=== PATIENT | male | born 1955 | race Caucasian/White ===

== ENCOUNTER 2017-05-16 16:18 | Inpatient (IN) | payer SELFPAY ==
[~2017-05-16] VITALS: Ht 177.8 cm; Wt 92.1 kg
[2017-05-16 16:18] VITALS: BP 116/72; PULSE 95; RESP 18; TEMP 98; O2SAT 97
[~2017-05-16 16:18] MED LIST: CLIN1CAP5 PO; IBUP600T26 PO; LORTA5 PO
[2017-05-16] MEDS ORDERED: AMOX500C PO (17:01)
[2017-05-16] MEDS ORDERED: METF500T PO (17:01)
[2017-05-16] MEDS ORDERED: LISI-515 PO (17:01)
[2017-05-16] MEDS ORDERED: LOVA10TA PO (17:01)
[2017-05-16] MEDS ORDERED: TYLE325T PO (17:01)
[2017-05-16 17:02] VITALS: BP 118/67; PULSE 84; RESP 18; O2SAT 99
[2017-05-16] MEDS ORDERED: SODIUM CHLOR 0.9% 1000 ML INJ 1,000 ML IV SCH ×2 (17:08→18:11)
[2017-05-16 17:09] VITALS: O2SAT 97
--- NOTE | 2017-05-16 17:10 | PD ---
HPI Chief Complaint: Medical Clearance Time Seen by Provider: 17:01 Travel History International Travel<30 days: No Contact w/Intl Traveler<30days: No Traveled to known affect area: No History of Present Illness HPI 61-year-old male brought in by ambulance from work for evaluation of possible acute extraction. The patient works outside in a gardening center. He has been working since 7:30 AM. Around 4:00 PM the patient became very nauseous/ diaphoretic, had hand cramping and muscle cramping, and began to vomit. He did not lose consciousness. EMS started an IV and administered a liter of normal saline IV. Upon arrival to the emergency department the patient is feeling much improved. He denies having chest pain or dyspnea. No abdominal pain. Of note is 92F outside currently with a heat index of 100F. PFSH Past Medical History Cardiovascular Problems: Yes (HTN) Diabetes: Yes Patient Takes Glucophage: Yes Tetanus Vaccination: > 5 Years Influenza Vaccination: No Past Surgical History Other Surgery: Yes (DEVIATED SEPTUM REPAIR) Social History Alcohol Use: Yes (DAILY ) Tobacco Use: Yes (CHEWING TOBACCO) Substance Use: No Allergies-Medications (Allergen,Severity, Reaction): Uncoded Allergies: POLLEN (Allergy, Severe, 04/08/15) SOB, RUNNY NOSE Reported Meds & Prescriptions Reported Meds & Active Scripts Active Reported Tylenol (Acetaminophen) 325 Mg Tab 325 Mg PO Q6H PRN Amoxicillin 500 Mg Cap 500 Mg PO BID Metformin (Metformin HCl) 500 Mg Tab 500 Mg PO BIDPC With meals Lisinopril 20 Mg Tab 20 Mg PO DAILY Lovastatin 10 Mg Tab 10 Mg PO DAILY Review of Systems Except as stated in HPI: all other systems reviewed are Neg Physical Exam Narrative GENERAL: Well-developed, well-nourished, comfortable, no acute distress. SKIN: Focused skin assessment warm/dry. HEAD: Atraumatic. Normocephalic. EYES: Pupils equal and round. No scleral icterus. No injection or drainage. ENT: Mucous membranes pink and moist. NECK: Trachea midline. No JVD. CARDIOVASCULAR: Regular rate and rhythm. RESPIRATORY: No accessory muscle use. Clear to auscultation. Breath sounds equal bilaterally. GASTROINTESTINAL: Abdomen soft, non-tender, nondistended. MUSCULOSKELETAL: No obvious deformities. No clubbing. No cyanosis. No edema. NEUROLOGICAL: Awake and alert. No obvious cranial nerve deficits. Motor grossly within normal limits. Normal speech. PSYCHIATRIC: Appropriate mood and affect; insight and judgment normal. Data Data Last Documented VS Vital Signs Date Time Temp Pulse Resp B/P Pulse Ox O2 Delivery O2 Flow Rate FiO2 05/16/17 18:01 85 18 118/70 100 Room Air 05/16/17 17:09 2 05/16/17 16:18 98.0 Orders Complete Blood Count With Diff (05/16/17 17:08) Comprehensive Metabolic Panel (05/16/17 17:08) Iv Access Insert/Monitor (05/16/17 17:08) Ecg Monitoring (05/16/17 17:08) Oximetry (05/16/17 17:08) Sodium Chlor 0.9% 1000 Ml Inj (Ns 1000 M (05/16/17 17:08) Sodium Chloride 0.9% Flush (Ns Flush) (05/16/17 17:15) Electrocardiogram (05/16/17 17:08) Sodium Chlor 0.9% 1000 Ml Inj (Ns 1000 M (05/16/17 18:11) Creatine Kinase (Cpk) (05/16/17 18:12) Urinalysis - C+S If Indicated (05/16/17 18:12) Labs Laboratory Tests Test 05/16/17 05/16/17 17:13 18:27 White Blood Count 9.8 TH/MM3 Red Blood Count 4.29 MIL/MM3 Hemoglobin 13.7 GM/DL Hematocrit 39.9 % Mean Corpuscular Volume 92.9 FL Mean Corpuscular Hemoglobin 31.9 PG Mean Corpuscular Hemoglobin 34.4 % Concent Red Cell Distribution Width 13.3 % Platelet Count 135 TH/MM3 Mean Platelet Volume 8.5 FL Neutrophils (%) (Auto) 77.8 % Lymphocytes (%) (Auto) 10.4 % Monocytes (%) (Auto) 9.9 % Eosinophils (%) (Auto) 1.5 % Basophils (%) (Auto) 0.4 % Neutrophils # (Auto) 7.6 TH/MM3 Lymphocytes # (Auto) 1.0 TH/MM3 Monocytes # (Auto) 1.0 TH/MM3 Eosinophils # (Auto) 0.2 TH/MM3 Basophils # (Auto) 0.0 TH/MM3 CBC Comment DIFF FINAL Differential Comment Sodium Level 134 MEQ/L Potassium Level 4.6 MEQ/L Chloride Level 101 MEQ/L Carbon Dioxide Level 21.5 MEQ/L Anion Gap 12 MEQ/L Blood Urea Nitrogen 62 MG/DL Creatinine 3.71 MG/DL Estimat Glomerular Filtration 17 ML/MIN Rate Random Glucose 136 MG/DL Calcium Level 8.5 MG/DL Total Bilirubin 1.1 MG/DL Aspartate Amino Transf 41 U/L (AST/SGOT) Alanine Aminotransferase 55 U/L (ALT/SGPT) Alkaline Phosphatase 54 U/L Total Protein 7.5 GM/DL Albumin 4.0 GM/DL Urine Color YELLOW Urine Turbidity CLEAR Urine pH 5.0 Urine Specific [place] 1.013 Urine Protein TRACE mg/dL Urine Glucose (UA) NEG mg/dL Urine Ketones NEG mg/dL Urine Occult Blood NEG Urine Nitrite NEG Urine Bilirubin NEG Urine Urobilinogen LESS THAN 2.0 MG/DL Urine Leukocyte Esterase NEG Urine RBC LESS THAN 1 /hpf Urine WBC 1 /hpf Urine Hyaline Casts 44 /lpf Urine Mucus FEW /lpf Microscopic Urinalysis Comment CULT NOT INDICATED MDM Medical Decision Making Medical Screen Exam Complete: Yes Emergency Medical Condition: Yes Medical Record Reviewed: Yes Interpretation(s) EKG: Sinus, rate 90, normal axis, normal intervals, no acute ischemic abnormality. Differential Diagnosis Heat exhaustion, metabolic abnormality Narrative Course Vital signs reviewed. CBC shows WBC 9.8, hemoglobin 13.7, hematocrit 39.9, platelets 135. CMP is remarkable for BUN 62, creatinine 3.71, GFR 17. This is stress clear worse than the labs that we have on record from 2015. Patient was made aware of all findings. He was given a liter of normal saline IV by EMS as well as another liter here in the emergency department. He reports feeling improved. He reports that he has been doing a lot of heavy lifting at work. CK will be added to his labs as well as a UA. He was started on normal saline at 1 25 cc per hour and will be admitted for further treatment and evaluation of acute renal failure/insufficiency and heat exhaustion. Case discussed with medical office administrator Dr. Mary. The patient will be admitted to their service for further treatment and evaluation. Patient made aware of all findings and plan for admission. Diagnosis Primary Impression: Acute renal insufficiency Additional Impression: Heat exhaustion Qualified Code: T67.5XXA - Heat exhaustion, initial encounter Admitting Information Admitting Physician Requests: Admit Malick Mayer MD May 16, 2017 17:10
[2017-05-16] MEDS ORDERED: SODIUM CHLORIDE 0.9% FLUSH 10 ML FLUSH IV FLUSH PRN ×2 (17:15→19:30)
[2017-05-16 17:40] LABS: AUTOMATED NEUTROPHIL # 7.6 TH/MM3 (1.8-7.7); BASOPHIL % 0.4 % (0.0-2.0); EOSINOPHIL # 0.2 TH/MM3 (0-0.4); EOSINOPHIL % 1.5 % (0.0-4.0); HEMATOCRIT 39.9 % (39.0-51.0); HEMO FLAGS DIFF FINAL; LYMPH % 10.4 % (9.0-44.0); MEAN CELL VOLUME 92.9 FL (80.0-100.0); MEAN CORPUSCULAR HEMOGLOBIN 31.9 PG (27.0-34.0); MEAN CORPUSCULAR HGB CONC 34.4 % (32.0-36.0); MONO % 9.9 % (0.0-8.0); NEUT % 77.8 % (16.0-70.0); PLATELET COUNT 135 TH/MM3 (150-450); RED BLOOD COUNT 4.29 MIL/MM3 (4.50-5.90); RED CELL DISTRIBUTION WIDTH 13.3 % (11.6-17.2); WHITE BLOOD COUNT 9.8 TH/MM3 (4.0-11.0)
[2017-05-16 18:01] VITALS: BP 118/70; PULSE 85; RESP 18; O2SAT 100
[2017-05-16 18:02] LABS: ANION GAP 12 MEQ/L (5-15); AST (GOT) 41 U/L (15-37); BICARBONATE 21.5 MEQ/L (21.0-32.0); BLOOD UREA NITROGEN 62 MG/DL (7-18); CHLORIDE 101 MEQ/L (98-107); GLOMERULAR FILTRATION RATE 17 ML/MIN (>89); POTASSIUM 4.6 MEQ/L (3.5-5.1); SODIUM (NA) 134 MEQ/L (136-145)
[2017-05-16 18:03] LABS: ALT (GPT) 55 U/L (12-78)
[2017-05-16 18:05] LABS: ALKALINE PHOSPHATASE 54 U/L (45-117); TOTAL BILIRUBIN ADULT 1.1 MG/DL (0.2-1.0)
[2017-05-16 18:37] LABS: BLOOD, URINE NEG (NEG); COMMENT (UR) CULT NOT INDICATED; CULTURE IF INDICATED CULT NOT INDICATED; GLUCOSE,URINE NEG (NEG); HYALINE CAST, URINE 44 /lpf (RARE); KETONE, URINE NEG (NEG); MUCUS URINE FEW /lpf (OCC); NITRITE,URINE NEG (NEG); URINE COLOR YELLOW (YELLW/STRAW)
[2017-05-16] MEDS ORDERED: RESP: ALBUTEROL 2.5 MG/3 ML NEB (PRN) INH (19:30)
[2017-05-16] MEDS ORDERED: NALOXONE HCL 0.4 MG/ML AMP IV PRN (19:30)
[2017-05-16] MEDS ORDERED: SENNOSIDES 8.6 MG TAB PO PRN (19:30)
[2017-05-16] MEDS ORDERED: ACETAMINOPHEN 325 MG TAB PO PRN (19:30)
[2017-05-16] MEDS ORDERED: cloNIDine HCL 0.1 MG TAB PO PRN (19:30)
[2017-05-16] MEDS ORDERED: BISACODYL 10 MG SUPP RECTAL PRN (19:30)
[2017-05-16] MEDS ORDERED: MAGNESIUM HYDROXIDE SUSP 30 ML CUP PO PRN (19:30)
[2017-05-16] MEDS ORDERED: ONDANSETRON HCL 4 MG/2 ML VIAL IVP PRN (19:30)
[2017-05-16] MEDS ORDERED: DEXTROSE 50% IN WATER 50 ML VIAL(D50) IV PRN (19:30)
[2017-05-16] MEDS ORDERED: LACTULOSE SYRUP 20 GM/30 ML CUP PO PRN (19:30)
[2017-05-16] MEDS ORDERED: GLUCAGON 1 MG/ML VIAL OTHER PRN (19:30)
[2017-05-16] MEDS ORDERED: hydrOXYzine HCL 50 MG TAB PO PRN (19:30)
--- NOTE | 2017-05-16 20:00 | HHI.HP ---
[facility] Service Family Medicine Primary Care Physician No Primary Care Physician Admission Diagnosis acute renal insufficiency, heat exhaustion Diagnoses: International Travel<30 Days: No Contact w/Intl Traveler<30days: No Known Affected Area: No History of Present Illness 61 year old male presents with symptoms of heat exhaustion and acute kidney injury. 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 He has been feeling weak, fatigued, dehydrated, and had 3 episodes of vomiting today. He's been having some tremors as well. He has been sweating a lot at work. His urine has been decreased. He had to take breaks at work from exhaustion. He tries to drink plenty of fluids but worries he falls behind for good hydration. He also has been having some hand and body cramps. No headache, blurry vision, chest pain, shortness of breath, abdominal pain. He had two episodes of loose stools today but thinks it is from his metformin. No calf swelling or tenderness. No fevers, night sweats, or recent weight loss. His baseline kidney function is normal. He has a history of diabetes, hypertension, and sleep apnea. He had acute sinusitis recently and is taking amoxicillin with symptoms improved. (Braeden Mary MD R2) Review of Systems Constitutional: COMPLAINS OF: Diaphoretic episodes, Fatigue, Change in appetite , DENIES: Fever, Weight gain, Weight loss, Chills, Dizziness, Night Sweats Endocrine: DENIES: Heat/cold intolerance, Polydipsia, Polyuria, Polyphagia Eyes: DENIES: Blurred vision, Eye pain, Photosensitivity, Double Vision Ears, nose, mouth, throat: COMPLAINS OF: Sinus Pain, DENIES: Tinnitus, Nasal discharge Respiratory: DENIES: Cough, Wheezing, Shortness of breath Cardiovascular: DENIES: Chest pain, Syncope, Lower Extremity Edema, Orthopnea, Claudication Gastrointestinal: COMPLAINS OF: Diarrhea, Nausea, Vomiting, DENIES: Abdominal pain, Black stools, Bloody stools, Constipation, Anorexia Genitourinary: DENIES: Urinary frequency, Hematuria Musculoskeletal: DENIES: Joint pain, Muscle aches, Stiffness, Back pain, Neck pain Integumentary: DENIES: Rash Hematologic/lymphatic: DENIES: Lymphadenopathy Immunologic/allergic: DENIES: Eczema Neurologic: COMPLAINS OF: Tremor, DENIES: Localized weakness, Seizures Psychiatric: DENIES: Anxiety, Confusion, Mood changes, Depression, Delusions ( Braeden Mary MD R2) Past Family Social History Past Medical History Hypertension Diabetes Sleep apnea Past Surgical History Deviated septum surgery Reported Medications Reported Meds & Active Scripts Active Reported Tylenol (Acetaminophen) 325 Mg Tab 325 Mg PO Q6H PRN Amoxicillin 500 Mg Cap 500 Mg PO BID Metformin (Metformin HCl) 500 Mg Tab 500 Mg PO BIDPC With meals Lisinopril 20 Mg Tab 20 Mg PO DAILY Lovastatin 10 Mg Tab 10 Mg PO DAILY (Braeden Mary MD R2) Allergies: Uncoded Allergies: POLLEN (Allergy, Severe, 04/08/15) SOB, RUNNY NOSE Active Ordered Medications Inpatient Medications Acetaminophen (Tylenol) 650 mg Q4H PRN PO TEMP>101F, PAIN 1-10, HEADACHE; Start 05/16/17 at 19:30; Status UNV Albuterol Sulfate (Albuterol Neb) 2.5 mg Q2HR NEB PRN INH SHORTNESS OF BREATH; Start 05/16/17 at 19:30; Status UNV Amoxicillin (Trimox) 500 mg BID PO ; Start 05/16/17 at 21:00; Status UNV Bisacodyl (Dulcolax Supp) 10 mg DAILY PRN RECTAL SEVERE CONSITIPATION; Start at 19:30; Status UNV Clonidine (Catapres) 0.1 mg Q6H PRN PO SBP> OR = 180, DBP> OR = 100; Start at 19:30; Status UNV Dextrose (D50w (Vial) Inj) 50 ml UNSCH PRN IV HYPOGLYCEMIA-SEE COMMENTS; Start 05/16/17 at 19:30; Status UNV Glucagon (Glucagon Inj) 1 mg UNSCH PRN OTHER HYPOGLYCEMIA-SEE COMMENTS; Start 05/16/17 at 19:30; Status UNV Heparin Sodium (Porcine) (Heparin Inj) 5,000 units Q8H SQ ; Start 05/16/17 at 19 :30; Status UNV Hydroxyzine HCl (Atarax) 50 mg HS PRN PO INSOMNIA; Start 05/16/17 at 19:30; Status UNV Insulin Aspart (NovoLOG SUPPLEMENTAL SCALE) 1 ACHS SLIDING SCALE SQ ; Start at 21:00; Status UNV Lactulose (Lactulose Liq) 30 ml DAILY PRN PO SEVERE CONSITIPATION; Start at 19:30; Status UNV Magnesium Hydroxide (Milk Of Magnesia Liq) 30 ml Q12H PRN PO MILD - MODERATE CONSTIPATION; Start 05/16/17 at 19:30; Status UNV Naloxone HCl (Narcan Inj) 0.4 mg UNSCH PRN IV SEE LABEL COMMENTS; Start at 19:30; Status UNV Ondansetron HCl (Zofran Inj) 4 mg Q6H PRN IVP NAUSEA OR VOMITING; Start at 19:30; Status UNV Pravastatin Sodium (Pravachol) 10 mg DAILY PO ; Start 05/16/17 at 19:30; Status UNV Senna/Docusate Sodium (Becki-Colace) 1 tab BID PO ; Start 05/16/17 at 21:00; Status UNV Sennosides (Senokot) 17.2 mg Q12H PRN PO MODERATE - SEVERE CONSTIPATION; Start 05/16/17 at 19:30; Status UNV Sodium Chloride (NS 1000 ml Inj) 1,000 ml @ 131 mls/hr Q7H39M IV ; Start at 19:24; Status UNV Sodium Chloride (NS Flush) 2 ml BID IV FLUSH ; Start 05/16/17 at 21:00; Status UNV Sodium Chloride 2 ml 2 ml UNSCH PRN IV FLUSH FLUSH AFTER USING IV ACCESS; Start 05/16/17 at 17:15 Family History B[place]hr: diabetes, diabetic coma Mom: cervical cancer dad: healthy Social History Smokeless tobacco for 10 years One beer per night Lives by self Works at [employer] in the heat (Braeden Mary MD R2) Physical Exam Vital Signs Vital Signs Date Time Temp Pulse Resp B/P Pulse Ox O2 Delivery O2 Flow Rate FiO2 05/16/17 18:01 85 18 118/70 100 Room Air 05/16/17 17:09 97 Nasal Cannula 2 05/16/17 17:02 84 18 118/67 99 Room Air 05/16/17 16:18 95 18 05/16/17 16:18 98.0 95 18 116/72 97 Room Air 05/16/17 16:18 98.0 95 18 116/72 97 Physical Exam GENERAL: Lying in bed, no distress SKIN: Excessive sun exposure, no rashes HEAD: Atraumatic. Normocephalic. No temporal or scalp tenderness. EYES: Pupils equal round and reactive. Extraocular motions intact. No scleral icterus. No injection or drainage. ENT: Nose without bleeding, purulent drainage or septal hematoma. Throat without erythema, tonsillar hypertrophy or exudate. Uvula midline. Airway patent. NECK: Trachea midline. No JVD or lymphadenopathy. Supple, nontender, no meningeal signs. CARDIOVASCULAR: Regular rate and rhythm without murmurs, gallops, or rubs. Normal capillary refill. RESPIRATORY: Clear to auscultation. Breath sounds equal bilaterally. No wheezes , rales, or rhonchi. GASTROINTESTINAL: Abdomen soft, non-tender, nondistended. No hepato-splenomegaly , or palpable masses. No guarding. MUSCULOSKELETAL: Extremities without clubbing, cyanosis, or edema. No joint tenderness, effusion, or edema noted. No calf tenderness. Negative Homans sign bilaterally. NEUROLOGICAL: Awake and alert. Cranial nerves II through XII intact. Motor and sensory grossly within normal limits. Five out of 5 muscle strength in all muscle groups. Normal speech. Laboratory Laboratory Tests Test 05/16/17 05/16/17 05/16/17 17:13 18:24 18:27 White Blood Count 9.8 Red Blood Count 4.29 Hemoglobin 13.7 Hematocrit 39.9 Mean Corpuscular Volume 92.9 Mean Corpuscular Hemoglobin 31.9 Mean Corpuscular Hemoglobin 34.4 Concent Red Cell Distribution Width 13.3 Platelet Count 135 Mean Platelet Volume 8.5 Neutrophils (%) (Auto) 77.8 Lymphocytes (%) (Auto) 10.4 Monocytes (%) (Auto) 9.9 Eosinophils (%) (Auto) 1.5 Basophils (%) (Auto) 0.4 Neutrophils # (Auto) 7.6 Lymphocytes # (Auto) 1.0 Monocytes # (Auto) 1.0 Eosinophils # (Auto) 0.2 Basophils # (Auto) 0.0 CBC Comment DIFF FINAL Differential Comment Sodium Level 134 Potassium Level 4.6 Chloride Level 101 Carbon Dioxide Level 21.5 Anion Gap 12 Blood Urea Nitrogen 62 Creatinine 3.71 Estimat Glomerular Filtration 17 Rate Random Glucose 136 Calcium Level 8.5 Total Bilirubin 1.1 Aspartate Amino Transf 41 (AST/SGOT) Alanine Aminotransferase 55 (ALT/SGPT) Alkaline Phosphatase 54 Total Protein 7.5 Albumin 4.0 Total Creatine Kinase 149 Urine Color YELLOW Urine Turbidity CLEAR Urine pH 5.0 Urine Specific [place] 1.013 Urine Protein TRACE Urine Glucose (UA) NEG Urine Ketones NEG Urine Occult Blood NEG Urine Nitrite NEG Urine Bilirubin NEG Urine Urobilinogen LESS THAN 2.0 Urine Leukocyte Esterase NEG Urine RBC LESS THAN 1 Urine WBC 1 Urine Hyaline Casts 44 Urine Mucus FEW Microscopic Urinalysis Comment CULT NOT INDICATED (Braeden Mary MD R2) Result Diagram: 05/16/17 1713 05/16/17 171 Septic Shock Reassessment Heart: Regular rate and rhythm Lungs: Clear Skin: Warm Capillary Refill: <2 seconds (Braeden Mary MD R2) Assessment and Plan Assessment and Plan 61 year old male presents with symptoms of heat exhaustion, dehydration, and acute kidney injury Code Status FULL CODE Discussed Condition With Seen and discussed with Dr. Mare Dasilva (Braeden Mary MD R2) Attending Attestation Patient seen and examined. Case reviewed and discussed with the resident team. Agree with plan of care as discussed with me and documented in the resident note. pt seen on admission with the residents while he was being admitted. participated in some questioning and exam (Nany Garvey MD) Problem List: (1) Heat exhaustion Status: Acute Plan: Currently with normal temperatures, appears much more comfortable after fluid rehydration. Has significant sun exposure on skin. Works out in the heat and lifts heavy objects. Sweats a lot at work. - Review heat exposure precautions, educate patient - See below for dehydration and EMY (2) Acute renal insufficiency Status: Acute Plan: Baseline normal kidney function, BUN 62 and creatinine 3.71, likely prerenal etiology due to dehydration, elevated BUN/Cr ratio. - IVF with NS at maintenance - Monitor renal function - Get renal ultrasound - Avoid nephrotoxic agents - Renally dose medications - Renal consult only if not improving with fluids - Holding lisinopril and metformin (3) Diabetes Status: Chronic Plan: - Hold metformin for EMY - Sliding scale insulin - Monitor blood sugars (4) Hypertension Status: Chronic Plan: - Holding lisinopril and metformin - PRN for high blood pressure (5) Acute sinusitis Status: Chronic Plan: Acute sinusitis started one month ago, on amoxicillin - continue amoxicillin from home (6) Nutrition, metabolism, and development symptoms Status: Acute Plan: IV fluids at maintenance, normal saline Diabetic diet Monitor electrolytes Check mg and phos (7) No contraindication to deep vein thrombosis (DVT) prophylaxis Status: Acute Plan: Heparin 5000 tid (Braeden Mary MD R2) Problem Qualifiers (1) Heat exhaustion: Qualified Code: T67.5XXA - Heat exhaustion, initial encounter (2) Diabetes: Qualified Code: E11.8 - Type 2 diabetes mellitus with complication, without long-term current use of insulin (3) Hypertension: Qualified Code: I10 - Essential hypertension (4) Acute sinusitis: Qualified Code: J01.91 - Acute recurrent sinusitis, unspecified location Braeden Mary MD R2 May 16, 2017 20:00 Nany Garvey MD May 17, 2017 15:12
[2017-05-16] MEDS: SODIUM CHLOR 0.9% 1000 ML INJ 1,000 ML IV SCH (20:16)
[2017-05-16 21:02] VITALS: BP 128/79; PULSE 84; RESP 18; TEMP 98.3; O2SAT 97
--- NOTE | 2017-05-16 23:02 | RADRPT ---
EXAM DATE/TIME: 05/16/2017 22:34 [facility] COMPARISON: No previous studies available for comparison. INDICATIONS : Increased BUN/Creatinine. MEDICAL HISTORY : Hypertension. Diabetes. Tremors. SURGICAL HISTORY : Deviated septum repair. ENCOUNTER: Initial ACUITY: 1 day PAIN SCORE: 0/10 LOCATION: Bilateral flank MEASUREMENTS: RIGHT KIDNEY: 12.4 x 5.6 x 6.5 cm LEFT KIDNEY: 11.9 x 5.7 x 5.8 cm FINDINGS: RIGHT KIDNEY: Renal cortex is normal in thickness and echotexture. No hydronephrosis, stone, or mass. LEFT KIDNEY: Renal cortex is normal in thickness and echotexture. No hydronephrosis, stone, or mass. BLADDER: Within normal limits given the degree of distension. CONCLUSION: 1. Normal kidneys and urinary bladder. 2. Incidental note made of splenomegaly. Akin Hanna Jr., MD on May 16, 2017 at 22:59 Board Certified Radiologist. This report was verified electronically.
[2017-05-16] MEDS: SODIUM CHLORIDE 0.9% FLUSH 10 ML FLUSH IV FLUSH SCH (23:21)
[2017-05-16] MEDS: AMOXICILLIN (TRIHYDRATE) 500 MG CAP PO SCH (23:23)
[2017-05-16] MEDS: HEPARIN SODIUM - SQ 10,000 UNITS/ML VIAL SQ SCH (23:24)
[2017-05-16] MEDS: DOCUSATE SODIUM 50 MG/SENNA 8.6 MG TAB PO SCH (23:24)
[2017-05-16] MEDS: INSULIN ASPART SUPPLEMENTAL SCALE SQ SCH (23:34)
[2017-05-17] VITALS (10 sets, daily range): BP systolic 102–151; BP diastolic 56–85; PULSE 63–70; RESP 18–20; TEMP 97.6–98.9; O2SAT 96–100
[2017-05-17] MEDS: HEPARIN SODIUM - SQ 10,000 UNITS/ML VIAL SQ SCH ×3 (05:53→21:11)
[2017-05-17] MEDS: INSULIN ASPART SUPPLEMENTAL SCALE SQ SCH ×4 (06:49→21:00)
[2017-05-17] MEDS: PNEUMOCOCCAL POLYVALENT INJ 25 MCG/0.5 ML SYR IM ONE ×2 (07:53→21:20)
[2017-05-17] MEDS: SODIUM CHLORIDE 0.9% FLUSH 10 ML FLUSH IV FLUSH SCH ×2 (07:55→21:11)
[2017-05-17] MEDS: PRAVASTATIN SOD 10 MG TAB PO SCH (08:02)
[2017-05-17] MEDS: DOCUSATE SODIUM 50 MG/SENNA 8.6 MG TAB PO SCH ×2 (08:02→21:11)
[2017-05-17] MEDS: AMOXICILLIN (TRIHYDRATE) 500 MG CAP PO SCH ×2 (08:02→21:11)
[2017-05-17 08:27] LABS: AUTOMATED NEUTROPHIL # 2.7 TH/MM3 (1.8-7.7); BASOPHIL % 0.5 % (0.0-2.0); EOSINOPHIL # 0.2 TH/MM3 (0-0.4); EOSINOPHIL % 3.8 % (0.0-4.0); HEMATOCRIT 36.4 % (39.0-51.0); HEMO FLAGS DIFF FINAL; LYMPH % 26.7 % (9.0-44.0); LYMPHOCYTE # 1.2 TH/MM3 (1.0-4.8); MEAN CELL VOLUME 92.1 FL (80.0-100.0); MEAN CORPUSCULAR HEMOGLOBIN 32.2 PG (27.0-34.0); MONO % 8.7 % (0.0-8.0); NEUT % 60.3 % (16.0-70.0); PLATELET COUNT 108 TH/MM3 (150-450); RED BLOOD COUNT 3.96 MIL/MM3 (4.50-5.90); RED CELL DISTRIBUTION WIDTH 13.5 % (11.6-17.2); WHITE BLOOD COUNT 4.4 TH/MM3 (4.0-11.0)
[2017-05-17 08:55] LABS: ALKALINE PHOSPHATASE 53 U/L (45-117); ALT (GPT) 45 U/L (12-78); ANION GAP 9 MEQ/L (5-15); AST (GOT) 30 U/L (15-37); BICARBONATE 22.2 MEQ/L (21.0-32.0); BLOOD UREA NITROGEN 51 MG/DL (7-18); CHLORIDE 108 MEQ/L (98-107); GLOMERULAR FILTRATION RATE 39 ML/MIN (>89); POTASSIUM 4.2 MEQ/L (3.5-5.1); SODIUM (NA) 139 MEQ/L (136-145); TOTAL BILIRUBIN ADULT 0.9 MG/DL (0.2-1.0)
--- NOTE | 2017-05-17 09:50 | HHI.HP ---
[facility] Service Family Medicine Primary Care Physician No Primary Care Physician Admission Diagnosis acute renal insufficiency, heat exhaustion Diagnoses: (1) Heat exhaustion Diagnosis: Principal (2) Acute renal insufficiency Diagnosis: Principal (3) Diabetes Diagnosis: Principal (4) Hypertension Diagnosis: Principal (5) Acute sinusitis Diagnosis: Principal (6) Nutrition, metabolism, and development symptoms Diagnosis: Principal (7) No contraindication to deep vein thrombosis (DVT) prophylaxis Diagnosis: Principal International Travel<30 Days: No Contact w/Intl Traveler<30days: No Known Affected Area: No History of Present Illness Mr Barker is a 61 year old male who presented with symptoms of heat exhaustion and acute kidney injury. 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 He has been feeling weak, fatigued, dehydrated, and had 3 episodes of vomiting the day of admission. He's been having some tremors as well. He has been sweating a lot at work. His urine has been decreased. He had to take breaks at work from exhaustion. He tries to drink plenty of fluids but worries he falls behind for good hydration. He also has been having some hand and body cramps. No headache, blurry vision, chest pain, shortness of breath, abdominal pain. He had two episodes of loose stools but thinks it is from his metformin. No calf swelling or tenderness. No fevers, night sweats, or recent weight loss. His baseline kidney function is normal. He has a history of diabetes, hypertension, and sleep apnea. He had acute sinusitis recently and is taking amoxicillin with symptoms improved. He has significant renal failure on admission and is markedly better today. He feels improved with his strength and general condition. However, his creatinine is still elevated over his baseline. We discussed that he may need to take his metformin at night or right after work as diarrhea causes fluid loss along with sweating and possible increased urination due to DM. He had problems with hypoglycemia in the past so is avoiding many diabetic meds. Review of Systems Other Constitutional: COMPLAINS OF: Diaphoretic episodes, Fatigue, Change in appetite , DENIES: Fever, Weight gain, Weight loss, Chills, Dizziness, Night Sweats Endocrine: DENIES: Heat/cold intolerance, Polydipsia, Polyuria, Polyphagia Eyes: DENIES: Blurred vision, Eye pain, Photosensitivity, Double Vision Ears, nose, mouth, throat: COMPLAINS OF: Sinus Pain, DENIES: Tinnitus, Nasal discharge Respiratory: DENIES: Cough, Wheezing, Shortness of breath Cardiovascular: DENIES: Chest pain, Syncope, Lower Extremity Edema, Orthopnea, Claudication Gastrointestinal: COMPLAINS OF: Diarrhea, Nausea, Vomiting, DENIES: Abdominal pain, Black stools, Bloody stools, Constipation, Anorexia Genitourinary: DENIES: Urinary frequency, Hematuria Musculoskeletal: DENIES: Joint pain, Muscle aches, Stiffness, Back pain, Neck pain Integumentary: DENIES: Rash Hematologic/lymphatic: DENIES: Lymphadenopathy Immunologic/allergic: DENIES: Eczema Neurologic: COMPLAINS OF: Tremor, DENIES: Localized weakness, Seizures Psychiatric: DENIES: Anxiety, Confusion, Mood changes, Depression, Delusions Past Family Social History Past Medical History Hypertension Diabetes Sleep apnea multiple episodes of sinusitis about twice a year Past Surgical History Deviated septum surgery Allergies: Uncoded Allergies: POLLEN (Allergy, Severe, 04/08/15) SOB, RUNNY NOSE Family History Brother: diabetes, diabetic coma Mom: cervical cancer dad: healthy Social History Smokeless tobacco for 10 years One beer per night Lives by self Works at [employer] in the [facility] Physical Exam Vital Signs Vital Signs Date Time Temp Pulse Resp B/P Pulse Ox O2 Delivery O2 Flow Rate FiO2 05/17/17 08:30 98 21 05/17/17 08:04 Room Air 05/17/17 08:00 98.9 63 20 112/63 96 05/17/17 04:20 98.0 64 18 108/66 98 05/17/17 04:11 97 21 05/17/17 00:27 97.6 69 18 102/56 97 05/17/17 00:00 Room Air 05/17/17 00:00 97 21 05/16/17 21:02 98.3 84 18 128/79 97 05/16/17 21:00 Room Air 05/16/17 20:00 Room Air 05/16/17 18:01 85 18 118/70 100 Room Air 05/16/17 17:09 97 Nasal Cannula 2 05/16/17 17:02 84 18 118/67 99 Room Air 05/16/17 16:18 95 18 05/16/17 16:18 98.0 95 18 116/72 97 Room Air 05/16/17 16:18 98.0 95 18 116/72 97 Physical Exam GENERAL:sitting in chair, no distress SKIN: Excessive sun exposure, no rashes HEAD: Atraumatic. Normocephalic EYES: Pupils equal round and reactive. Extraocular motions intact. No scleral icterus. No injection or drainage. ENT: Nose without bleeding, purulent drainage or septal hematoma. Throat without erythema, tonsillar hypertrophy or exudate seen in ED. Uvula midline. Airway patent. NECK: Trachea midline. No JVD or lymphadenopathy. Supple, nontender, no meningeal signs. CARDIOVASCULAR: Regular rate and rhythm without murmurs, gallops, or rubs. Normal capillary refill. RESPIRATORY: Clear to auscultation. Breath sounds equal bilaterally. No wheezes , rales, or rhonchi. GASTROINTESTINAL: Abdomen soft, non-tender, nondistended. No hepato-splenomegaly , or palpable masses. No guarding. MUSCULOSKELETAL: Extremities without clubbing, cyanosis, or edema. No joint tenderness, effusion, or edema noted. No calf tenderness. Negative Homans sign bilaterally. NEUROLOGICAL: Awake and alert. Cranial nerves II through XII intact. Motor and sensory grossly within normal limits. Five out of 5 muscle strength in all muscle groups. Normal speech. Laboratory Laboratory Tests Test 05/16/17 05/16/17 05/16/17 05/16/17 17:13 18:24 18:27 20:00 White Blood Count 9.8 Red Blood Count 4.29 Hemoglobin 13.7 Hematocrit 39.9 Mean Corpuscular Volume 92.9 Mean Corpuscular Hemoglobin 31.9 Mean Corpuscular Hemoglobin 34.4 Concent Red Cell Distribution Width 13.3 Platelet Count 135 Mean Platelet Volume 8.5 Neutrophils (%) (Auto) 77.8 Lymphocytes (%) (Auto) 10.4 Monocytes (%) (Auto) 9.9 Eosinophils (%) (Auto) 1.5 Basophils (%) (Auto) 0.4 Neutrophils # (Auto) 7.6 Lymphocytes # (Auto) 1.0 Monocytes # (Auto) 1.0 Eosinophils # (Auto) 0.2 Basophils # (Auto) 0.0 CBC Comment DIFF FINAL Differential Comment Sodium Level 134 Potassium Level 4.6 Chloride Level 101 Carbon Dioxide Level 21.5 Anion Gap 12 Blood Urea Nitrogen 62 Creatinine 3.71 Estimat Glomerular Filtration 17 Rate Random Glucose 136 Calcium Level 8.5 Total Bilirubin 1.1 Aspartate Amino Transf 41 (AST/SGOT) Alanine Aminotransferase 55 (ALT/SGPT) Alkaline Phosphatase 54 Total Protein 7.5 Albumin 4.0 Total Creatine Kinase 149 Urine Color YELLOW Urine Turbidity CLEAR Urine pH 5.0 Urine Specific [place] 1.013 Urine Protein TRACE Urine Glucose (UA) NEG Urine Ketones NEG Urine Occult Blood NEG Urine Nitrite NEG Urine Bilirubin NEG Urine Urobilinogen LESS THAN 2.0 Urine Leukocyte Esterase NEG Urine RBC LESS THAN 1 Urine WBC 1 Urine Hyaline Casts 44 Urine Mucus FEW Microscopic Urinalysis Comment CULT NOT INDICATED Urine Eosinophils NONE SEEN Urine Osmolality 335 Urine Random Creatinine 160.6 Urine Random Sodium 48 Serum Osmolality 304 Phosphorus Level 5.3 Magnesium Level 3.0 Test 05/16/17 05/17/17 22:09 07:34 Lactic Acid Level 2.1 White Blood Count 4.4 Red Blood Count 3.96 Hemoglobin 12.8 Hematocrit 36.4 Mean Corpuscular Volume 92.1 Mean Corpuscular Hemoglobin 32.2 Mean Corpuscular Hemoglobin 35.0 Concent Red Cell Distribution Width 13.5 Platelet Count 108 Mean Platelet Volume 9.1 Neutrophils (%) (Auto) 60.3 Lymphocytes (%) (Auto) 26.7 Monocytes (%) (Auto) 8.7 Eosinophils (%) (Auto) 3.8 Basophils (%) (Auto) 0.5 Neutrophils # (Auto) 2.7 Lymphocytes # (Auto) 1.2 Monocytes # (Auto) 0.4 Eosinophils # (Auto) 0.2 Basophils # (Auto) 0.0 CBC Comment DIFF FINAL Differential Comment Sodium Level 139 Potassium Level 4.2 Chloride Level 108 Carbon Dioxide Level 22.2 Anion Gap 9 Blood Urea Nitrogen 51 Creatinine 1.77 Estimat Glomerular Filtration 39 Rate Random Glucose 110 Calcium Level 8.1 Total Bilirubin 0.9 Aspartate Amino Transf 30 (AST/SGOT) Alanine Aminotransferase 45 (ALT/SGPT) Alkaline Phosphatase 53 Total Protein 6.6 Albumin 3.4 Result Diagram: 05/17/17 0734 05/17/17 0734 Assessment and Plan Assessment and Plan 61 year old male presents with symptoms of heat exhaustion, dehydration, and acute kidney injury Problem List: (1) Heat exhaustion Status: Acute Plan: Currently with normal temperatures, appears much more comfortable after fluid rehydration and being in AC. Has significant sun exposure on skin. Works out in the heat and lifts heavy objects. Sweats a lot at work. - Review heat exposure precautions, educated patient explained that he needs to take breaks in the air conditioning and drink fluids preferably out of the sun. his physiology has changed because of his medical conditions of HTN and DM as well as the meds he takes and the side effects. He will speak to his employer who can hopefully make some accommodations in the summer heat. - See below for dehydration and EMY (2) Acute renal insufficiency Status: Acute Plan: Baseline normal kidney function, BUN 62 and creatinine 3.71, likely prerenal etiology due to dehydration, elevated BUN/Cr ratio. - IVF with NS at maintenance, will continue today as his renal fxn is better but not back to his nl of creatinine of about 1 - Monitor renal function - renal ultrasound not alarming - Avoid nephrotoxic agents - Renally dose medications - Renal consult only if not improving with fluids - Holding lisinopril and metformin (3) Diabetes Status: Chronic Plan: - Hold metformin for EMY - Sliding scale insulin - Monitor blood sugars (4) Hypertension Status: Chronic Plan: - Holding lisinopril and metformin - PRN for high blood pressure (5) Acute sinusitis Status: Chronic Plan: Acute sinusitis started one month ago, on amoxicillin - continue amoxicillin from home (6) Nutrition, metabolism, and development symptoms Status: Acute Plan: IV fluids at maintenance, normal saline Diabetic diet Monitor electrolytes Check mg and phos (7) No contraindication to deep vein thrombosis (DVT) prophylaxis Status: Acute Plan: Heparin 5000 tid Problem Qualifiers (1) Heat exhaustion: Qualified Code: T67.5XXA - Heat exhaustion, initial encounter (2) Diabetes: Qualified Code: E11.8 - Type 2 diabetes mellitus with complication, without long-term current use of insulin (3) Hypertension: Qualified Code: I10 - Essential hypertension (4) Acute sinusitis: Qualified Code: J01.91 - Acute recurrent sinusitis, unspecified location Nany Garvey MD May 17, 2017 09:50
[2017-05-17] MEDS: SODIUM CHLOR 0.9% 1000 ML INJ 1,000 ML IV SCH ×3 (11:18→21:14)
--- NOTE | 2017-05-17 12:15 | EKG ---
Date Performed: 05/16/2017 Time Performed: 16:45:18 PTAGE: 61 years EKG: Sinus rhythm MODERATE INTRAVENTRICULAR CONDUCTION DELAY BORDERLINE ECG NO PREVIOUS TRACING DOCTOR: Ronaldo Pittman Interpretating Date/Time 05/17/2017 12:13:01
[2017-05-18] VITALS: BP 115/52; PULSE 61; RESP 19; TEMP 98; O2SAT 98
[2017-05-18] MEDS: SODIUM CHLOR 0.9% 1000 ML INJ 1,000 ML IV SCH (02:36)
[2017-05-18 04:00] VITALS: BP 130/73; PULSE 55; RESP 19; TEMP 98.2; O2SAT 97
[2017-05-18] MEDS: HEPARIN SODIUM - SQ 10,000 UNITS/ML VIAL SQ SCH (05:29)
[2017-05-18] MEDS: INSULIN ASPART SUPPLEMENTAL SCALE SQ SCH (05:29)
[2017-05-18 08:00] VITALS: BP 149/83; PULSE 57; RESP 20; TEMP 97.9; O2SAT 97
--- NOTE | 2017-05-18 08:05 | HHI.FPPN ---
Subjective Remarks No acute events. Resting in bed. Reports feeling back to his baseline. No nausea or vomiting. No abdominal pain. No shortness of breath or chest pain. Reviewed heat exhaustion prevention tips. He will talk to his employer regarding staying out of the heat more at work and getting more breaks. (Braeden Mary MD R2) Objective Vitals Vital Signs Date Time Temp Pulse Resp B/P Pulse Ox O2 Delivery O2 Flow Rate FiO2 05/18/17 04:00 Room Air 05/18/17 04:00 98.2 55 19 130/73 97 05/18/17 00:00 98.0 61 19 115/52 98 05/18/17 00:00 Room Air 05/17/17 20:00 98.3 66 20 136/81 97 05/17/17 20:00 Room Air 05/17/17 17:23 99 21 05/17/17 16:00 98.3 64 20 151/85 100 05/17/17 12:00 98.3 70 20 146/74 98 05/17/17 08:30 98 21 05/17/17 08:04 Room Air 05/17/17 08:00 98.9 63 20 112/63 96 I/O 05/17/17 05/17/17 05/17/17 05/18/17 05/18/17 05/18/17 07:00 15:00 23:00 07:00 15:00 23:00 Intake Total 1294 ml 720 ml 1788 ml 995 ml Output Total 975 ml 350 ml Balance 319 ml 370 ml 1788 ml 995 ml Intake Oral 720 ml IV Total 1294 ml 1788 ml 995 ml Output Urine Total 975 ml 350 ml # Voids 2 2 3 # Bowel Movements 2 (Braeden Mary MD R2) Result Diagram: 05/17/1734 05/17/17 0734 Objective Remarks GENERAL:Sitting up in bed, no distress SKIN: Excessive sun exposure, no rashes HEAD: Atraumatic. Normocephalic EYES: Pupils equal round and reactive. Extraocular motions intact. No scleral icterus. No injection or drainage. ENT: Nose without bleeding, purulent drainage or septal hematoma. Throat without erythema, tonsillar hypertrophy or exudate seen in ED. Uvula midline. Airway patent. NECK: Trachea midline. No JVD or lymphadenopathy. Supple, nontender, no meningeal signs. CARDIOVASCULAR: Regular rate and rhythm without murmurs, gallops, or rubs. Normal capillary refill. RESPIRATORY: Clear to auscultation. Breath sounds equal bilaterally. No wheezes , rales, or rhonchi. GASTROINTESTINAL: Abdomen soft, non-tender, nondistended. No hepato-splenomegaly , or palpable masses. No guarding. MUSCULOSKELETAL: Extremities without clubbing, cyanosis, or edema. No joint tenderness, effusion, or edema noted. No calf tenderness. Negative Homans sign bilaterally. NEUROLOGICAL: Awake and alert. Cranial nerves II through XII intact. Motor and sensory grossly within normal limits. Five out of 5 muscle strength in all muscle groups. Normal speech. (Braeden Mary MD R2) A/P Assessment and Plan 61 year old male presents with symptoms of heat exhaustion, dehydration, and acute kidney injury Discharge Planning Discharge pending improvement in kidney function, rehydration. Provide counseling on prevention of heat exhaustion and dehydration. (Braeden Mary MD R2) Attending Attestation Patient seen and examined. Case reviewed and discussed with the resident team. Agree with plan of care as discussed with me and documented in the resident note. feeling better with fluids and rest (Nany Garvey MD) Problem List: (1) Heat exhaustion Status: Resolved Plan: Currently with normal temperatures, appears much more comfortable after fluid rehydration and being in AC. Has significant sun exposure on skin. Works out in the heat and lifts heavy objects. Sweats a lot at work. - Review heat exposure precautions, educated patient explained that he needs to take breaks in the air conditioning and drink fluids preferably out of the sun. his physiology has changed because of his medical conditions of HTN and DM as well as the meds he takes and the side effects. He will speak to his employer who can hopefully make some accommodations in the summer heat. - See below for dehydration and EMY (2) Acute renal insufficiency Status: Resolved Plan: Baseline normal kidney function, BUN 62 and creatinine 3.71 at admission , likely prerenal etiology due to dehydration, elevated BUN/Cr ratio. Creatinine trending back down after IV fluids. - IVF with NS at maintenance, switch to PO fluids - Monitor renal function - Renal ultrasound normal - Avoid nephrotoxic agents - Renally dose medications - Holding lisinopril and metformin, can restart at discharge (3) Diabetes Status: Chronic Plan: Currently euglycemic - Hold metformin for EMY, restart at discharge - Sliding scale insulin - Monitor blood sugars (4) Hypertension Status: Chronic Plan: - Holding lisinopril for EMY, restart before discharge - PRN for high blood pressure (5) Acute sinusitis Status: Chronic Plan: Acute sinusitis started one month ago, on amoxicillin - continue amoxicillin from home (6) Nutrition, metabolism, and development symptoms Status: Acute Plan: IV fluids at maintenance, switch to PO as creatinine trending down Diabetic diet Electrolytes back to normal (7) No contraindication to deep vein thrombosis (DVT) prophylaxis Status: Acute Plan: Heparin 5000 tid (Braeden Mary MD R2) Problem Qualifiers (1) Heat exhaustion: Qualified Code: T67.5XXA - Heat exhaustion, initial encounter (2) Diabetes: Qualified Code: E11.8 - Type 2 diabetes mellitus with complication, without long-term current use of insulin (3) Hypertension: Qualified Code: I10 - Essential hypertension (4) Acute sinusitis: Qualified Code: J01.91 - Acute recurrent sinusitis, unspecified location Braeden Mary MD R2 May 18, 2017 08:05 Nany Garvey MD May 20, 2017 14:59
--- NOTE | 2017-05-18 08:06 | HHI.DCPOC ---
Discharge Care Plan Diagnosis: (1) Acute renal insufficiency (2) Heat exhaustion Goals to Promote Your Health * To prevent worsening of your condition and complications * To maintain your health at the optimal level Directions to Meet Your Goals Take your medications as prescribed Follow your dietary instruction Follow activity as directed Keep your appointments as scheduled Take your immunizations and boosters as scheduled If your symptoms worsen call your PCP, if no PCP go to Urgent Care Center or Emergency Room Smoking is Dangerous to Your Health. Avoid second hand smoke Call the 24-hour hour crisis hotline for domestic abuse at Braeden Mary MD R2 May 18, 2017 08:06
[2017-05-18 08:58] LABS: HEMATOCRIT 37.3 % (39.0-51.0); MEAN CORPUSCULAR HEMOGLOBIN 31.5 PG (27.0-34.0); MEAN CORPUSCULAR HGB CONC 33.9 % (32.0-36.0); PLATELET COUNT 98 TH/MM3 (150-450); RED BLOOD COUNT 4.01 MIL/MM3 (4.50-5.90); RED CELL DISTRIBUTION WIDTH 12.9 % (11.6-17.2)
[2017-05-18] MEDS: SODIUM CHLORIDE 0.9% FLUSH 10 ML FLUSH IV FLUSH SCH (09:00)
[2017-05-18] MEDS: DOCUSATE SODIUM 50 MG/SENNA 8.6 MG TAB PO SCH (09:00)
[2017-05-18] MEDS: PRAVASTATIN SOD 10 MG TAB PO SCH (09:12)
[2017-05-18] MEDS: AMOXICILLIN (TRIHYDRATE) 500 MG CAP PO SCH (09:12)
[2017-05-18 09:22] LABS: BICARBONATE 21.7 MEQ/L (21.0-32.0); POTASSIUM 4.7 MEQ/L (3.5-5.1)
--- NOTE | 2017-05-18 09:39 | HHI.DS ---
Discharge Summary Admission Date May 16, 2017 at 18:49 Discharge Date: May 18, 2017 Admitting Diagnosis acute renal insufficiency, heat exhaustion (1) Heat exhaustion Diagnosis: Principal Plan: Currently with normal temperatures, appears much more comfortable after fluid rehydration and being in AC. Has significant sun exposure on skin. Works out in the heat and lifts heavy objects. Sweats a lot at work. - Review heat exposure precautions, educated patient explained that he needs to take breaks in the air conditioning and drink fluids preferably out of the sun. his physiology has changed because of his medical conditions of HTN and DM as well as the meds he takes and the side effects. He will speak to his employer who can hopefully make some accommodations in the summer heat. - See below for dehydration and EMY (2) Acute renal insufficiency Diagnosis: Principal Plan: Baseline normal kidney function, BUN 62 and creatinine 3.71 at admission , likely prerenal etiology due to dehydration, elevated BUN/Cr ratio. Creatinine trending back down after IV fluids. - IVF with NS at maintenance, switch to PO fluids - Monitor renal function - Renal ultrasound normal - Avoid nephrotoxic agents - Renally dose medications - Holding lisinopril and metformin, can restart at discharge (3) Diabetes Diagnosis: Secondary Plan: Currently euglycemic - Hold metformin for EMY, restart at discharge - Sliding scale insulin - Monitor blood sugars (4) Hypertension Diagnosis: Secondary Plan: - Holding lisinopril for EMY, restart before discharge - PRN for high blood pressure (5) Acute sinusitis Diagnosis: Secondary Plan: Acute sinusitis started one month ago, on amoxicillin - continue amoxicillin from home (6) Nutrition, metabolism, and development symptoms Diagnosis: Secondary Plan: IV fluids at maintenance, switch to PO as creatinine trending down Diabetic diet Electrolytes back to normal (7) No contraindication to deep vein thrombosis (DVT) prophylaxis Diagnosis: Secondary Plan: Heparin 5000 tid Consultants none Procedures none Brief History Mr Barker is a 61 year old male who presented with symptoms of heat exhaustion and acute kidney injury. 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 He has been feeling weak, fatigued, dehydrated, and had 3 episodes of vomiting the day of admission. He's been having some tremors as well. He has been sweating a lot at work. His urine has been decreased. He had to take breaks at work from exhaustion. He tries to drink plenty of fluids but worries he falls behind for good hydration. He also has been having some hand and body cramps. No headache, blurry vision, chest pain, shortness of breath, abdominal pain. He had two episodes of loose stools but thinks it is from his metformin. No calf swelling or tenderness. No fevers, night sweats, or recent weight loss. His baseline kidney function is normal. He has a history of diabetes, hypertension, and sleep apnea. He had acute sinusitis recently and is taking amoxicillin with symptoms improved. He has significant renal failure on admission and is markedly better today. He feels improved with his strength and general condition. However, his creatinine is still elevated over his baseline. We discussed that he may need to take his metformin at night or right after work as diarrhea causes fluid loss along with sweating and possible increased urination due to DM. He had problems with hypoglycemia in the past so is avoiding many diabetic meds. CBC/BMP: 05/17/17 0734 05/18/17 0812 Significant Findings Laboratory Tests Test 05/16/17 05/16/17 05/16/17 05/16/17 17:13 18:27 20:00 22:09 Red Blood Count 4.29 MIL/MM3 (4.50-5.90) Platelet Count 135 TH/MM3 (150-450) Neutrophils (%) (Auto) 77.8 % (16.0-70.0) Monocytes (%) (Auto) 9.9 % (0.0-8.0) Monocytes # (Auto) 1.0 TH/MM3 (0-0.9) Sodium Level 134 MEQ/L (136-145) Blood Urea Nitrogen 62 MG/DL (7-18) Creatinine 3.71 MG/DL (0.60-1.30) Estimat Glomerular Filtration 17 ML/MIN (>89) Rate Random Glucose 136 MG/DL (74-106) Total Bilirubin 1.1 MG/DL (0.2-1.0) Aspartate Amino Transf 41 U/L (15-37) (AST/SGOT) Urine Mucus FEW /lpf (OCC) Serum Osmolality 304 MOSM/KG (275-295) Phosphorus Level 5.3 MG/DL (2.5-4.9) Magnesium Level 3.0 MG/DL (1.5-2.5) Lactic Acid Level 2.1 mmol/L (0.4-2.0) Test 05/17/17 05/18/17 07:34 08:12 Red Blood Count 3.96 MIL/MM3 (4.50-5.90) Hemoglobin 12.8 GM/DL (13.0-17.0) Hematocrit 36.4 % (39.0-51.0) Platelet Count 108 TH/MM3 (150-450) Monocytes (%) (Auto) 8.7 % (0.0-8.0) Chloride Level 108 MEQ/L 110 MEQ/L (98-107) (98-107) Blood Urea Nitrogen 51 MG/DL (7-18) 34 MG/DL (7-18) Creatinine 1.77 MG/DL (0.60-1.30) Estimat Glomerular Filtration 39 ML/MIN (>89) 70 ML/MIN (>89) Rate Random Glucose 110 MG/DL (74-106) Calcium Level 8.1 MG/DL 8.2 MG/DL (8.5-10.1) (8.5-10.1) PE at Discharge GENERAL:Sitting up in bed, no distress SKIN: Excessive sun exposure, no rashes HEAD: Atraumatic. Normocephalic EYES: Pupils equal round and reactive. Extraocular motions intact. No scleral icterus. No injection or drainage. ENT: Nose without bleeding, purulent drainage or septal hematoma. Throat without erythema, tonsillar hypertrophy or exudate seen in ED. Uvula midline. Airway patent. NECK: Trachea midline. No JVD or lymphadenopathy. Supple, nontender, no meningeal signs. CARDIOVASCULAR: Regular rate and rhythm without murmurs, gallops, or rubs. Normal capillary refill. RESPIRATORY: Clear to auscultation. Breath sounds equal bilaterally. No wheezes , rales, or rhonchi. GASTROINTESTINAL: Abdomen soft, non-tender, nondistended. No hepato-splenomegaly , or palpable masses. No guarding. MUSCULOSKELETAL: Extremities without clubbing, cyanosis, or edema. No joint tenderness, effusion, or edema noted. No calf tenderness. Negative Homans sign bilaterally. NEUROLOGICAL: Awake and alert. Cranial nerves II through XII intact. Motor and sensory grossly within normal limits. Five out of 5 muscle strength in all muscle groups. Normal speech. Hospital Course 61 year old male presented with symptoms of heat exhaustion, dehydration, and acute kidney injury. 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 He presented with weakness, fatigue, dehydration, vomiting, and tremors. He had been sweating a lot at work. He had decreased and concentrated urine. His creatinine was found to be 3.71. Electrolytes were stable, sodium was borderline low. He was given fluid boluses of normal saline, followed by maintenance fluids. His symptoms resolved very quickly after being indoors and getting fluids. His lisinopril (for hypertension) and metformin ( for diabetes) were temporarily held for acute kidney injury, but will be restarted at discharge. His creatinine returned to normal by discharge on day 3. By discharge he is feeling back to his baseline. Gave education regarding heat exhaustion, staying cool at work, trying to stay out of the mid-day heat and sun, and drinking both gatorade and water when sweating a lot to replenish electrolytes. He will discuss his work options with his employer. He will follow up with his primary care doctor hopefully this week. Pt Condition on Discharge: Good Discharge Disposition: Discharge Home Discharge Instructions DIET: Follow Instructions for: Diabetic Diet Activities you can perform: Regular-No Restrictions Other Activity Instructions: See heat exhaustion tips above Follow up Referrals: PCP Follow-up - 1 Week Continued Medications: Acetaminophen (Tylenol) 325 Mg Tab 325 MG PO Q6H PRN PAIN SCALE 1 TO 5 Ref 0 TAB Amoxicillin (Amoxicillin) 500 Mg Cap 500 MG PO BID Infection Ref 0 CAP Lisinopril (Lisinopril) 20 Mg Tab 20 MG PO DAILY #30 Ref 0 TAB Lovastatin (Lovastatin) 10 Mg Tab 10 MG PO DAILY Cholesterol Management #30 Ref 0 TAB Metformin (Metformin) 500 Mg Tab 500 MG PO BIDPC With meals Blood Sugar Management #60 Ref 0 TAB Braeden Mary MD R2 May 18, 2017 09:39
[2017-05-18 09:58] LABS: REVIEW FLAG AUTO DIFF
== END 2017-05-18 12:35 | disposition home or self-care (01) | DRG 923 ==
LOC: NEPD 16:18 → NEDA 18:49 → N04B 20:37
PROVIDERS: ADMIT Family Medicine; ATTEND Family Medicine
DX: T67.5XXA Heat exhaustion, unspecified, initial encounter (principal); N17.9 Acute kidney failure, unspecified; E86.0 Dehydration; I10 Essential (primary) hypertension; E11.9 Type 2 diabetes mellitus without complications; J01.90 Acute sinusitis, unspecified; Z79.84 Long term (current) use of oral hypoglycemic drugs; G47.30 Sleep apnea, unspecified; F17.220 Nicotine dependence, chewing tobacco, uncomplicated; Z23 Encounter for immunization
CPT/HCPCS: 76775; 80048; 80053; 81001; 82550; 82570; 82948; 83605; 83735; 83930; 83935; 84100; 84300; 85025; 85027; 87205; 90732; 93005; 94150; 96360; J1644; J1815; J7030